=== PATIENT | female | born 1950 | race Caucasian/White ===

== ENCOUNTER 2023-01-26 08:53 | Emergency (ER) | payer MEDICARE ==
[2023-01-26] MEDS ORDERED: TETANUS/DIPHTHERIA/PERTUSSIS 0.5 ML SYRINGE IM ONE (09:23)
--- NOTE | 2023-01-26 11:17 | CT Report ---
PROCEDURE: CT cervical spine without contrast INDICATIONS: fall/head injury TECHNIQUE: Helical axial CT of the cervical spine was obtained without contrast and reformatted in m ultiple planes. Radiation dose reduction was achieved utilizing automated exposure control or adjus tment of mA and/or kV according to patient size. COMPARISON: None. FINDINGS: Bones: No fractures or dislocations. Visualized superior ribs are intact. Disc space narrowing and hypertrophic facet joints particularly in the left side noted in the mid to lower cervical spine Soft tissues: Prevertebral soft tissues are normal in thickness. No paravertebral hematomas. No ap ical pneumothoraces. Debris in both external auditory canals can be correlated with direct visualization IMPRESSION: Multilevel degenerative disc disease and arthropathy without fracture or traumatic malalignment Reviewed by: Cuco Recinos MD on 01/26/2023 10:15 AM MARLEN Approved by: Cuco Recinos MD on 01/26/2023 10:15 AM MARLEN Station ID: [id number]
--- NOTE | 2023-01-26 11:28 | ED Physician Documentation ---
PD HPI HEAD INJURY - Stated complaint Stated Complaint: HEAD INJ - Chief complaint Chief Complaint: Heent - History obtained from History obtained from: Patient - Additional information Additional information: Patient is a 42-year-old female presenting for evaluation of a head injury that occurred this morning. Patient was getting out of the bathtub when she slipped and fell and hitting her head against a corner. Denies LOC. Is not on a blood thinner. She is unclear of her last tetanus. Denies pain or injury elsewhere other than to the head. Review of Systems Constitutional: denies: Fever Cardiac: denies: Chest pain / pressure Respiratory: denies: Dyspnea GI: denies: Abdominal Pain Neurologic: reports: Head injury. denies: Syncope PD PAST MEDICAL HISTORY - Past Medical History Past Medical History: Yes Neuro: Other Other Past Medical History: sciatica - Past Surgical History Past Surgical History: No - Present Medications Home Medications: Ambulatory Orders Medication Instructions Recorded Confirmed No Known Home Medications 01/26/23 01/26/23 - Allergies Allergies/Adverse Reactions: Allergies Allergy/AdvReac Type Severity Reaction Status Date / Time No Known Drug Allergies Allergy Verified 01/26/23 09:16 - Social History Does the pt smoke?: No Smoking Status: Never smoker Does the pt drink ETOH?: Yes Does the pt have substance abuse?: No PD ED PE NORMAL - General General: Alert and oriented X 3, No acute distress, Well developed/nourished - HEENT HEENT: Other (1 inch laceration to the left parieto-occipital scalp) - Neck Neck: Supple, no meningeal sign, No bony TTP - Cardiac Cardiac: RRR, No murmur, Strong equal pulses - Respiratory Respiratory: No respiratory distress, Clear bilaterally - Back Back: No spinal TTP - Derm Derm: Warm and dry - Neuro Neuro: Alert and oriented X 3, No motor deficit, Normal speech Results - Vitals Vitals: Vital Signs - 24 hr 01/26/23 01/26/23 09:12 12:08 Temperature 36.7 C Heart Rate 60 60 Respiratory 18 14 Rate Blood Pressure 143/59 H 138/75 H O2 Saturation 100 98 Oxygen O2 Source Room air Procedures - Laceration (location) L scalp Length in cm: 3 Wound type: Linear, Clean Anesthesia: Lidocaine 1% Wound preparation: Hibiclens, Irrigated copiously NS Skin layer closure: Dharmesh (5) Other: Patient tolerated well, No complications, Neurovascular intact, Dressing applied, Tetanus booster given PD Medical Decision Making - ED course Complexity details: reviewed results, re-evaluated patient, d/w patient ED course: Patient presenting for evaluation after head injury. Not on blood thinners. Normal neuro exam. No C-spine tenderness. Has a scalp laceration that was closed with dharmesh. His tetanus booster was given. Head CT and C-spine CT were reviewed and without any acute findings. She remains without any concerning symptoms here and is counseled on wound care instructions as well as need to return for staple removal. Patient counseled on concerning symptoms to return for. Departure - Departure Disposition: 01 Home, Self Care Clinical Impression: Head injury, Laceration of scalp Condition: Stable Instructions: ED Head Injury Closed, ED Laceration Scalp Stitch Or Stap Comments: Ariella you were evaluated after a head injury. You have a laceration to your scalp that was closed with 5 dharmesh. These should be kept in place and removed in approximately 1 week. You can return to the emergency department or follow- up with your primary care for removal. The CT scans of your head and neck do not show any injuries from your fall. Please continue with acetaminophen as needed for any pain. You were given a tetanus booster today. Forms: PCP List Discharge Date/Time: 01/26/23 12:08
--- NOTE | 2023-01-26 11:32 | CT Report ---
PROCEDURE: CT brain without contrast INDICATIONS: fall/head injury TECHNIQUE: Helical axial CT of the brain was obtained without contrast and reformatted in multiple p lanes. Radiation dose reduction was achieved using automated exposure control or adjustment of mA and /or kV according to patient size. COMPARISON: None FINDINGS: CSF spaces: Ventricles are appropriate in size and position. No hydrocephalus. Basal cisterns unre markable. Brain: No midline shift. No intracranial masses or hemorrhage. Ghotra-white matter interface is norm al. Moderate atrophy and multifocal white matter chronic ischemic change noted. Atherosclerotic vasc ular calcification noted in the cavernous segments of both internal carotid arteries . Skull and face: Calvarium and skull base are unremarkable without suspicious lesion. Sinuses: Visualized sinuses and mastoids are clear. IMPRESSION: Atrophy and chronic ischemic change without intracranial hemorrhage or mass effect Reviewed by: Cuco Recinos MD on 01/26/2023 10:31 AM MARLEN Approved by: Cuco Recinos MD on 01/26/2023 10:31 AM MARLEN Station ID: [id number]
[2023-01-26 12:13] VITALS: BP 138/75; O2SAT 98
== END 2023-01-26 12:08 | disposition home or self-care (01) ==
LOC: ED 08:53
DX: S01.01XA Laceration without foreign body of scalp, initial encounter (principal); W16.212A Fall in (into) filled bathtub causing other injury, initial encounter; Z23 Encounter for immunization
CPT/HCPCS: 12002; 90471; 99283; 99284